=== PATIENT | male | born 1935 | race Two or more races ===

== ENCOUNTER → 2016-08-04 | Outpatient (CLI) | payer MEDICARE, OTHER ==
[~2016-08-04] MED LIST: ASPIRIN81 M3 PO; AVODART0.5 MG ORAL; CALCIUM500 M3 PO; CRESTOR10 M1 ORAL; CYCLOBENZAPRINE10 MG ORAL; DIFLUCAN100 MG ORAL; DOCUSATE SODIU100 MG ORAL; FERROUS SULFAT325 MG ORAL; FLUOCINONIDE60 ML TP; FLUOXETINE HCL10 MG ORAL; FOLIC ACID1 MG ORAL; IBUPROFEN200 M2 ORAL; INVOKANA300 MG PO; LOSARTAN POTASS50 MG ORAL; METFORMIN HCL500 M1 ORAL; MIRTAZAPINE7.5 MG ORAL; OMEPRAZOLE20 M2 ORAL; PAIN; PENTOXIFYLLINE400 MG ORAL; TRAMADOL HCL50 MG ORAL; VITAMIN D250000 UNI1 ORAL
--- NOTE | 2016-08-04 13:50 | GI Progress Note ---
Assessment/Plan Problems: (1) Small intestinal bacterial overgrowth ICD Codes: K63.89 - Other specified diseases of intestine SNOMED: 180574169 (2) Colostomy in place ICD Codes: Z93.3 - Colostomy status SNOMED: 182572647, 428958887 (3) Abdominal pain ICD Codes: R10.9 - Unspecified abdominal pain SNOMED: 72609288 (4) GERD (gastroesophageal reflux disease) ICD Codes: K21.9 - Gastro-esophageal reflux disease without esophagitis SNOMED: 494944940 (5) Diarrhea ICD Codes: R19.7 - Diarrhea, unspecified SNOMED: 17629627 Status: stable Status Narrative Seen with Dr. Salinas. Assessment/Plan [facility] for breath test r/o SIBO hold iron RTC after results repeat colon September 2018 Subjective Subjective diarrhea every other day abdominal bloating >> relieve with align x 1 month, but bloating returned after align stopped. GERD >> improved with use of prilosec, worsens when having eps of diarrhea. Objective T 97.6 P 92/44 P 68 99 RA Denies weight loss Michelle Harris N.P. Aug 04, 2016 13:50
[2016-08-04 16:36] VITALS: BP 92/44
== END | disposition home or self-care (01) ==
LOC: PAN 13:09
DX: A04.8 Other specified bacterial intestinal infections (principal); Z93.3 Colostomy status; R10.9 Unspecified abdominal pain; K21.9 Gastro-esophageal reflux disease without esophagitis; R19.7 Diarrhea, unspecified
CPT/HCPCS: 99211

== ENCOUNTER → 2016-09-06 | Outpatient (CLI) | payer MEDICARE, OTHER ==
[2016-09-06 11:15] VITALS: BP 120/68
--- NOTE | 2016-09-06 11:23 | General Progress Note ---
Assessment/Plan Problem List: (1) Small intestinal bacterial overgrowth ICD Codes: K63.89 - Other specified diseases of intestine SNOMED: 576458989 (2) Colostomy in place ICD Codes: Z93.3 - Colostomy status SNOMED: 338923096, 422416452 (3) Abdominal pain ICD Codes: R10.9 - Unspecified abdominal pain SNOMED: 76570683 (4) GERD (gastroesophageal reflux disease) ICD Codes: K21.9 - Gastro-esophageal reflux disease without esophagitis SNOMED: 023662757 (5) Diarrhea ICD Codes: R19.7 - Diarrhea, unspecified SNOMED: 65205142 (6) Constipation ICD Codes: K59.00 - Constipation, unspecified SNOMED: 33731043 Assessment/Plan positive breath test treat retc one month Subjective ROS Limited/Unobtainable: Yes Allergies: Coded Allergies: No Known Allergies (Unverified , 09/24/13) Subjective c/o excessive gas Objective Last 24 Hour Vital Signs Date Time Temp Pulse Resp B/P Pulse Ox O2 Delivery O2 Flow Rate FiO2 09/06/16 11:15 98.3 66 16 120/68 General Appearance: alert EENT: normal ENT inspection Neck: supple Cardiovascular: normal rate Respiratory/Chest: lungs clear Abdomen: normal bowel sounds, non tender, soft Extremities: non-tender JONES AWAN Sep 06, 2016 11:23
== END | disposition home or self-care (01) ==
LOC: PAN 10:35
DX: R10.9 Unspecified abdominal pain (principal); A04.8 Other specified bacterial intestinal infections; Z93.3 Colostomy status; K21.9 Gastro-esophageal reflux disease without esophagitis; R19.7 Diarrhea, unspecified; K59.00 Constipation, unspecified
CPT/HCPCS: 99211

== ENCOUNTER 2016-10-25 10:41 | Outpatient (CLI) | payer MEDICARE, OTHER ==
--- NOTE | 2016-10-25 11:14 | GI Progress Note ---
Assessment/Plan Problems: (1) Small intestinal bacterial overgrowth ICD Codes: K63.89 - Other specified diseases of intestine SNOMED: 451770555 (2) GERD (gastroesophageal reflux disease) ICD Codes: K21.9 - Gastro-esophageal reflux disease without esophagitis SNOMED: 439941139 (3) Abdominal pain ICD Codes: R10.9 - Unspecified abdominal pain SNOMED: 19142598 Status: stable Status Narrative Seen with Dr. Salinas. Assessment/Plan cont Xifaxan for SIBO. dc neomycin cont prilosec, zantac prn RTC x 2 weeks Subjective Subjective acid reflux, not taking any medication diarrhea has resolved abdominal bloating returned patient was taking Xifaxan for SIBO, but stopped treatment after 5 days due to increased lethargy neomycin was held by Dr. Lane Objective T 97.8 BP 107/98 P 63 General Appearance: no apparent distress, alert Cardiovascular: normal rate Respiratory/Chest: normal breath sounds, no respiratory distress Abdominal Exam: normal bowel sounds, non tender, soft Extremities: other - Michelle Harris NLuisPLuis October 25, 2016 11:14
[2016-10-25] MEDS ORDERED: CENTRUM COMPLE1 EAC1 PO (11:15)
[2016-10-25] MEDS ORDERED: ZANTAC150 MG ORAL (11:15)
== END 2016-10-25 11:15 | disposition home or self-care (01) ==
LOC: PAN 10:41
DX: K21.9 Gastro-esophageal reflux disease without esophagitis (principal); A04.8 Other specified bacterial intestinal infections; R10.9 Unspecified abdominal pain
CPT/HCPCS: 99211

== ENCOUNTER 2016-11-17 12:56 | Outpatient (CLI) | payer MEDICARE, OTHER ==
[~2016-11-17 12:56] MED LIST changes: +CENTRUM COMPLE1 EAC1 PO; +ZANTAC150 MG ORAL
--- NOTE | 2016-11-17 14:01 | GI Progress Note ---
Assessment/Plan Problems: (1) Small intestinal bacterial overgrowth ICD Codes: K63.89 - Other specified diseases of intestine SNOMED: 007157109 (2) Abdominal pain ICD Codes: R10.9 - Unspecified abdominal pain SNOMED: 94376452 (3) GERD (gastroesophageal reflux disease) ICD Codes: K21.9 - Gastro-esophageal reflux disease without esophagitis SNOMED: 218121579 (4) Diarrhea ICD Codes: R19.7 - Diarrhea, unspecified SNOMED: 83499703 (5) Constipation ICD Codes: K59.00 - Constipation, unspecified SNOMED: 86290002 Status: stable Status Narrative Seen with Dr. Salinas. Assessment/Plan s/p SIBO tx Xifaxin >> stopped neomycin due to weakness. zantac prn RTC x 3 months Subjective Subjective abdominal bloating symptoms improved acid reflux improved, no longer takes zantac prn abdominal pain improved Objective T 97.7 BP 112/42 P 67 98 RA General Appearance: no apparent distress, alert Cardiovascular: normal rate Respiratory/Chest: normal breath sounds Abdominal Exam: normal bowel sounds, non tender, soft Michelle Harris N.PLuis Nov 17, 2016 14:01
== END 2016-11-17 13:45 | disposition home or self-care (01) ==
LOC: PAN 12:56
DX: K21.9 Gastro-esophageal reflux disease without esophagitis (principal); K59.00 Constipation, unspecified; R10.9 Unspecified abdominal pain; A04.8 Other specified bacterial intestinal infections
CPT/HCPCS: 99211

== ENCOUNTER 2016-12-22 13:03 | Outpatient (CLI) | payer MEDICARE, OTHER ==
[2016-12-22 13:15] VITALS: BP 102/42
--- NOTE | 2016-12-22 14:11 | GI Progress Note ---
Assessment/Plan Problems: (1) Diarrhea ICD Codes: R19.7 - Diarrhea, unspecified SNOMED: 22794392 (2) Colostomy in place ICD Codes: Z93.3 - Colostomy status SNOMED: 543410608, 499997688 (3) Abdominal pain ICD Codes: R10.9 - Unspecified abdominal pain SNOMED: 91974368 (4) GERD (gastroesophageal reflux disease) ICD Codes: K21.9 - Gastro-esophageal reflux disease without esophagitis SNOMED: 030279007 (5) Small intestinal bacterial overgrowth ICD Codes: K63.89 - Other specified diseases of intestine SNOMED: 338625103 Status: stable Status Narrative Seen with Dr. Salinas. Assessment/Plan s/p SIBO tx Xifaxin >> stopped neomycin due to weakness. Imodium prn cont zantac prn RTC x 3 months Subjective Subjective GERD >> mild, reccurent Diarrhea >> since last monday - today Objective Last 24 Hour Vital Signs Date Time Temp Pulse Resp B/P Pulse Ox O2 Delivery O2 Flow Rate FiO2 12/22/16 13:15 98.7 73 16 102/42 General Appearance: no apparent distress, alert Cardiovascular: normal rate Respiratory/Chest: normal breath sounds, no respiratory distress Abdominal Exam: normal bowel sounds, non tender, soft, other - colostomy Michelle Harris N.PLuis Dec 22, 2016 14:11
== END 2016-12-22 13:45 | disposition home or self-care (01) ==
LOC: PAN 13:03
DX: R19.7 Diarrhea, unspecified (principal); Z93.3 Colostomy status; R10.9 Unspecified abdominal pain; K21.9 Gastro-esophageal reflux disease without esophagitis; A04.8 Other specified bacterial intestinal infections
CPT/HCPCS: 99211

== ENCOUNTER 2017-01-03 10:56 | Outpatient (CLI) | payer MEDICARE, OTHER ==
[2017-01-03 11:06] VITALS: BP 96/46
--- NOTE | 2017-01-03 11:28 | GI Progress Note ---
Assessment/Plan Problems: (1) Diarrhea ICD Codes: R19.7 - Diarrhea, unspecified SNOMED: 48024388 (2) GERD (gastroesophageal reflux disease) ICD Codes: K21.9 - Gastro-esophageal reflux disease without esophagitis SNOMED: 838639821 (3) Abdominal pain ICD Codes: R10.9 - Unspecified abdominal pain SNOMED: 67418514 Status: stable Status Narrative Seen with Dr. Salinas. Assessment/Plan rx cholestyramine RTC prn or 3 months Subjective Subjective diarrhea, lomotil helped for 1 day headache Objective Last 24 Hour Vital Signs Date Time Temp Pulse Resp B/P Pulse Ox O2 Delivery O2 Flow Rate FiO2 01/03/17 11:06 98.0 82 16 96/46 General Appearance: no apparent distress, alert Cardiovascular: normal rate Respiratory/Chest: normal breath sounds, no respiratory distress Abdominal Exam: normal bowel sounds, non tender, soft Extremities: other - wheelchair Michelle Harris N.P. Jan 03, 2017 11:28
== END 2017-01-03 11:28 | disposition home or self-care (01) ==
LOC: PAN 10:56
DX: K21.9 Gastro-esophageal reflux disease without esophagitis (principal); R19.7 Diarrhea, unspecified; R10.9 Unspecified abdominal pain
CPT/HCPCS: 99211

== ENCOUNTER 2017-01-05 13:26 | Outpatient (CLI) | payer MEDICARE, OTHER | END 2017-01-05 13:40 | disposition home or self-care (01) | LOC: PAN 13:26 | DX: R19.7 Diarrhea, unspecified (principal) | CPT/HCPCS: 87045; 87324 ==

== ENCOUNTER 2017-02-02 12:43 | Outpatient (CLI) | payer MEDICARE, OTHER ==
--- NOTE | 2017-02-02 14:32 | GI Progress Note ---
Assessment/Plan Problems: (1) Diarrhea ICD Codes: R19.7 - Diarrhea, unspecified SNOMED: 72225060 (2) GERD (gastroesophageal reflux disease) ICD Codes: K21.9 - Gastro-esophageal reflux disease without esophagitis SNOMED: 706852625 (3) Abdominal pain ICD Codes: R10.9 - Unspecified abdominal pain SNOMED: 07119138 Status: stable Status Narrative Seen with Dr. Salinas. Assessment/Plan Change cholestyramine to 2gm BID increase omeprazole to 40mg zantac BID consider colonoscopy if no improvement RTC x 3 month, prn The patient was seen and examined at bedside and all new and available data was reviewed in the patients chart. I agree with the above findings, impression and plan. (Patient seen earlier today. Signature stamp does not reflect patient encounter time.). -David Salinas MD Subjective Subjective GERD >> zantac, omeprazole 20mg constipation, then diarrhea >> cholestyramine causing skin reaction? Objective T 98.1 BP 103/40 P 75 93 RA General Appearance: no apparent distress, alert Cardiovascular: normal rate Respiratory/Chest: lungs clear, normal breath sounds Abdominal Exam: normal bowel sounds, non tender, soft Michelle Harris N.PLuis Feb 02, 2017 14:32 DAVID SALINAS Feb 03, 2017 10:38
== END 2017-02-02 13:45 | disposition home or self-care (01) ==
LOC: PAN 12:43
DX: K21.9 Gastro-esophageal reflux disease without esophagitis (principal); R19.7 Diarrhea, unspecified; R10.9 Unspecified abdominal pain
CPT/HCPCS: 99211

== ENCOUNTER 2017-02-13 13:06 | Outpatient (CLI) | payer MEDICARE, OTHER ==
--- NOTE | 2017-02-13 14:36 | GI Progress Note ---
Assessment/Plan Problems: (1) Abdominal pain ICD Codes: R10.9 - Unspecified abdominal pain SNOMED: 33854677 (2) GERD (gastroesophageal reflux disease) ICD Codes: K21.9 - Gastro-esophageal reflux disease without esophagitis SNOMED: 643071658 (3) Diarrhea ICD Codes: R19.7 - Diarrhea, unspecified SNOMED: 34920466 (4) Colostomy in place ICD Codes: Z93.3 - Colostomy status SNOMED: 094267474, 324646183 (5) Constipation ICD Codes: K59.00 - Constipation, unspecified SNOMED: 96171805 Status: stable Status Narrative Seen with Dr. Salinas. Assessment/Plan rx Mag Citrate use half pack of cholestyramine colonoscopy if no improvement RTC x 1 month/prn Subjective Subjective denies diarrhea having constipation now, no BM x 8 days Objective T 98.1 BP 93/42 P 75 denies weight loss no changed in medication Michelle Harris N.P. Feb 13, 2017 14:36
== END 2017-02-13 13:45 | disposition home or self-care (01) ==
LOC: PAN 13:06
DX: R10.9 Unspecified abdominal pain (principal); K21.9 Gastro-esophageal reflux disease without esophagitis; R19.7 Diarrhea, unspecified; Z93.3 Colostomy status; K59.00 Constipation, unspecified
CPT/HCPCS: 99211

== ENCOUNTER 2017-02-22 13:42 | Outpatient (CLI) | payer MEDICARE, OTHER ==
[2017-02-22] MEDS ORDERED: LEVOTHYROXINE50 MCG ORAL (14:08)
[2017-02-22 14:12] VITALS: BP 93/39
--- NOTE | 2017-02-22 14:21 | GI Progress Note ---
Assessment/Plan Problems: (1) Abdominal pain ICD Codes: R10.9 - Unspecified abdominal pain SNOMED: 95547495 (2) GERD (gastroesophageal reflux disease) ICD Codes: K21.9 - Gastro-esophageal reflux disease without esophagitis SNOMED: 147705813 (3) Constipation ICD Codes: K59.00 - Constipation, unspecified SNOMED: 00518468 Status: stable Status Narrative Discussed with Dr. Salinas. Assessment/Plan Trial rx of trulance RTC x 1 month/prn will consider colonoscopy if no improvement Subjective Subjective constipated was taking cholestyramine 1/2 package NO BM since last 02/16/17 new hypothyroidism Objective Last 24 Hour Vital Signs Date Time Temp Pulse Resp B/P (MAP) Pulse Ox O2 Delivery O2 Flow Rate FiO2 02/22/17 14:12 97.6 68 16 93/39 General Appearance: no apparent distress, alert Cardiovascular: normal rate Respiratory/Chest: normal breath sounds, no respiratory distress Abdominal Exam: normal bowel sounds, non tender, soft Michelle Harris N.P. Feb 22, 2017 14:21
== END 2017-02-22 14:30 | disposition home or self-care (01) ==
LOC: PAN 13:42
DX: K21.9 Gastro-esophageal reflux disease without esophagitis (principal); K59.00 Constipation, unspecified; R10.9 Unspecified abdominal pain; E03.9 Hypothyroidism, unspecified
CPT/HCPCS: 99211

== ENCOUNTER 2017-03-15 08:51 | Day surgery (SDC) | payer MEDICARE, OTHER ==
[~2017-03-15] VITALS: Ht 162.6 cm; Wt 59.9 kg
[2017-03-15] VITALS (7 sets, daily range): BP systolic 119–152; BP diastolic 55–69
[~2017-03-15 08:51] MED LIST changes: +LEVOTHYROXINE50 MCG ORAL
--- NOTE | 2017-03-15 09:28 | Pre-Procedure Note/Attestation ---
Pre-Procedure Note/Attestation Complete Prior to Procedure Planned Procedure: not applicable Procedure Narrative: COLONOSCOPY Indications for Procedure Pre-Operative Diagnosis: DIARRHEA Attestation I attest that I discussed the nature of the procedure; its benefits; risks and complications; and alternatives (and the risks and benefits of such alternatives ), prior to the procedure, with the patient (or the patient's legal mechanical service representative). I attest that, if there was a reasonable possibility of needing a blood transfusion, the patient (or the patient's legal mechanical service representative) was given the [facility] standardized written summary, pursuant to the Cesar Jason Blood Safety Act ([place] Health and Safety Code # 1645, as amended). I attest that I re-evaluated the patient just prior to the surgery and that there has been no change in the patient's H&P, except as documented below: JONES AWAN Mar 15, 2017 09:28
--- NOTE | 2017-03-15 09:28 | Short Stay Surgery H&P ---
History of Present Illness History of Present Illness Chief Complaint diarrhea HPI Leonard Cheung is a 81 year old male who was admitted on for Diarrhea Patient History Allergies: Coded Allergies: No Known Allergies (Unverified , 09/24/13) PAST MEDICAL HISTORY: (1) Abdominal pain (2) GERD (gastroesophageal reflux disease) (3) Constipation (4) Colostomy in place (5) Diarrhea (6) Small intestinal bacterial overgrowth Past Surgeries: Social History: Medication History Scheduled Aspirin (Aspirin), 81 MG PO DAILY, (Reported) Canagliflozin (Invokana), 300 MG PO DA, (Reported) Cyclobenzaprine Hcl* (Flexeril*), 10 MG ORAL DA, (Reported) Dutasteride (Avodart), 0.5 MG ORAL DAILY, (Reported) Ergocalciferol (Vitamin D2)* (Vitamin D*), 50,000 UNIT ORAL ONCE A WEEK, ( Reported) Ferrous Sulfate* (Ferrous Sulfate*), 325 MG ORAL TID, (Reported) Fluocinonide (Fluocinonide), 60 ML TP BID, (Reported) Fluoxetine Hcl* (Fluoxetine Hcl*), 10 MG ORAL DAILY, (Reported) Folic Acid* (Folic Acid*), 1 MG ORAL DAILY, (Reported) Levothyroxine Sodium* (Levothyroxine Sodium*), 50 MCG ORAL DAILY, (Reported) Losartan Potassium* (Losartan Potassium*), 100 MG ORAL DAILY, (Reported) Metformin Hcl* (Metformin Hcl*), 1,000 MG ORAL BID, (Reported) Mirtazapine* (Mirtazapine*), 7.5 MG ORAL BEDTIME, (Reported) Omeprazole (Omeprazole), 40 MG ORAL DAILY, (Reported) Pentoxifylline* (Trental*), 400 MG ORAL BID, (Reported) Ranitidine Hcl* (Zantac*), 150 MG ORAL PRN, (Reported) Rosuvastatin Calcium (Crestor), 10 MG ORAL DAILY, (Reported) [pain lotion], BID, (Reported) Scheduled PRN Tramadol Hcl* (Ultram*), 50 MG ORAL QQ8 PRN for For Pain, (Reported) Miscellaneous Medications Multivitamin/Iron/Folic Acid (Centrum Complete Multivit Tab), EACH PO, (Reported ) Review of Systems Cardiovascular: Reports: no symptoms Respiratory: Reports: no symptoms Skeletal: Reports: no symptoms Gastrointestinal: Reports: no symptoms, gastro esophageal reflux disease, other Genitourinary: Reports: no symptoms Neurologic: Reports: no symptoms Endocrine: Reports: no symptoms Hematologic: Reports: no symptoms Physical Exam Skin: normal HENT: normal Heart: normal Lungs: normal Abdomen: normal Extremities: normal Plan Plan of Care EGD Final Diagnosis: Attestation Are the patient's medical conditions optimized for surgery? Attestation Response: yes JONES AWAN Mar 15, 2017 09:28
[2017-03-15] MEDS ORDERED: DOCUSATE SODIU100 MG ORAL (09:53)
[2017-03-15 09:58] LABS: BASOPHILS % (AUTO) 1.8 % (0.0-2.0); EOSINOPHILS % (AUTO) 16.2 % (0.0-3.0); LYMPHOCYTES % (AUTO) 37.2 % (20.0-45.0); MEAN CORPUSCULAR HEMOGLOBIN 30.8 PG (27.0-31.0); MEAN CORPUSCULAR HGB CONC 31.6 G/DL (32.0-36.0); MEAN CORPUSCULAR VOLUME 97 FL (80-99); MEAN PLATELET VOLUME 6.5 FL (6.5-10.1); MONOCYTES % (AUTO) 7.4 % (1.0-10.0); NEUTROPHILS % (AUTO) 37.3 % (45.0-75.0); PLATELET COUNT 245 K/UL (150-450); RED BLOOD COUNT 4.31 M/UL (4.70-6.10); WHITE BLOOD COUNT 6.7 K/UL (4.8-10.8)
[2017-03-15] MEDS ORDERED: Propofol 200mg/20ml IV ONE (10:10)
[2017-03-15 10:12] LABS: AMYLASE 93 U/L (10-110); LIPASE 50 U/L (< 60)
[2017-03-15 10:13] LABS: ALANINE AMINOTRANSFERASE 22 U/L (3-41); ALBUMIN/GLOBULIN RATIO 1.2 (1.0-2.7); ANION GAP 12 (5-15); ASPARTATE AMINO TRANSFERASE 26 U/L (5-40); CARBON DIOXIDE 30 mEQ/L (20-30); CHLORIDE 99 mEQ/L (98-107); CREATININE 0.9 mg/dL (0.7-1.2); HEMOLYSIS 7; POTASSIUM 4.6 mEQ/L (3.4-4.9); SODIUM 141 mEQ/L (135-145); TOTAL PROTEIN 7.7 g/dL (6.6-8.7)
--- NOTE | 2017-03-15 10:29 | Anethesia Preoperative Eval ---
Anesthesia Pre-op PMH/ROS General Date of Evaluation: Mar 15, 2017 Time of Evaluation: 10:10 Anesthesiologist: Chelsie ASA Score: ASA 3 Mallampati Score Class I : Soft palate, uvula, fauces, pillars visible Class II: Soft palate, uvula, fauces visible Class III: Soft palate, base of uvula visible Class IV: Only hard plate visible Mallampati Classification: Class II Surgeon: Brad Diagnosis: Diarrhea, Constipation Surgical Procedure: Colonoscopy Anesthesia History: none Family History: no anesthesia problems Allergies: Coded Allergies: No Known Allergies (Unverified , 09/24/13) Medications: see eMAR Past Medical History Cardiovascular: Denies: HTN, CAD, GA, valve dz, arrhythmia, other Pulmonary: Denies: asthma, COPD, JUSTIN, other Gastrointestinal/Genitourinary: Reports: GERD, other - diarrhea, constipation, abd pain, colostomy, Neurologic/Psychiatric: Denies: dementia, CVA, depression/anxiety, TIA, other Endocrine: Denies: DM, hypothyroidism, steroids, other HEENT: Denies: cataract (L), cataract (R), glaucoma, [place] (L), [place] (R), other Hematology/Immune: Denies: anemia, DVT, bleeding disorder, other Musculoskeletal/Integumentary: Denies: OA, RA, DJD, DDD, edema, other Anesthesia Pre-op Phys. Exam Physician Exam Last Vital Signs Date Time Temp Pulse Resp B/P (MAP) Pulse Ox O2 Delivery O2 Flow Rate FiO2 03/15/17 09:25 98.0 58 18 147/55 99 Room Air Constitutional: NAD Neurologic: CN 2-12 intact Cardiovascular: RRR Respiratory: CTA Gastrointestinal: S/NT/ND Airway Exam Mallampati Score: Class II MO: full ROM: full Teeth: missing Dentures: upper, lower Anesthesia Pre-op A/P Labs Hematology Test 03/15/17 09:40 White Blood Count 6.7 K/UL (4.8-10.8) Red Blood Count 4.31 M/UL (4.70-6.10) L Hemoglobin 13.3 G/DL (14.2-18.0) L Hematocrit 42.0 % (42.0-52.0) Mean Corpuscular Volume 97 FL (80-99) Mean Corpuscular Hemoglobin 30.8 PG (27.0-31.0) Mean Corpuscular Hemoglobin Concent 31.6 G/DL (32.0-36.0) L Red Cell Distribution Width 12.0 % (11.6-14.8) Platelet Count 245 K/UL (150-450) Mean Platelet Volume 6.5 FL (6.5-10.1) Neutrophils (%) (Auto) 37.3 % (45.0-75.0) L Lymphocytes (%) (Auto) 37.2 % (20.0-45.0) Monocytes (%) (Auto) 7.4 % (1.0-10.0) Eosinophils (%) (Auto) 16.2 % (0.0-3.0) H Basophils (%) (Auto) 1.8 % (0.0-2.0) Chemistry Test 03/15/17 09:40 Sodium Level Pending Potassium Level Pending Chloride Level Pending Carbon Dioxide Level Pending Blood Urea Nitrogen Pending Creatinine Pending Estimat Glomerular Filtration Rate Pending Glucose Level Pending Calcium Level Pending Total Bilirubin Pending Aspartate Amino Transf (AST/SGOT) Pending Alanine Aminotransferase (ALT/SGPT) Pending Alkaline Phosphatase Pending Total Protein Pending Albumin Pending Globulin Pending Amylase Level Pending Lipase Pending Carcinoembryonic Antigen Pending Studies Pre-op Studies: EKG - NSB with PACs bigminy Risk Assessment & Plan Plan: mac Status Change Before Surgery: No Pre-Antibiotics Given Within 1 Hr of Incision: Inocencia Pollard CRNA Mar 15, 2017 10:29
--- NOTE | 2017-03-15 10:30 | Immediate Post-Op Evaluation ---
Immediate Post-Op Evalulation Immediate Post-Op Evalulation Date of Evaluation: Mar 15, 2017 Time of Evaluation: 10:53 IV Fluids: 550 ml of NSS Estimated Blood Loss: 0 Urinary Output: 0 Blood Pressure Systolic: 119 Blood Pressure Diastolic: 56 Pulse Rate: 62 Respiratory Rate: 12 O2 Sat by Pulse Oximetry: 100 Temperature (Fahrenheit): 97.7 Pain Score (1-10): 0 Nausea: No Vomiting: No Patient Status: awake, reacts, patent Hydration Status: adequate Given Within 1 Hr of Incision: Inocencia Pollard CRNA Mar 15, 2017 10:30
--- NOTE | 2017-03-15 10:30 | 48 Hour Post Anesthesia Eval ---
Post Anesthesia Evaluation Date of Evaluation: Mar 15, 2017 Time of Evaluation: 11:10 Blood Pressure Systolic: 120 0: 58 Pulse Rate: 60 Respiratory Rate: 14 Temperature (Fahrenheit): 97.5 O2 Sat by Pulse Oximetry: 100 Airway: patent Nausea: No Vomiting: No Pain Intensity: 0 Hydration Status: adequate Mental Status/LOC: patient returned to baseline Follow-up care needed: patient intructions given Inocencia Holguin CRNA Mar 15, 2017 10:30
--- NOTE | 2017-03-15 10:42 | Endoscopy Procedure Note ---
Endoscopy Procedure Note Indication for Procedure: CHANGE IN BOWEL HABIT Procedures Performed: colonoscopy Operative Findings/Diagnosis: 2 POLYPS, DIVERTICULOSIS Specimen: yes Pt Tolerated Procedure Well: Yes Estimated Blood Loss: none Anesthesiologist: DESHAWN Anesthesia: MAC Implant(s) used?: No 50 yrs or older w/o bx or poly: No 10yrs. F/U not recommended: Yes If not recommended, why?: Above average risk 10 yrs. F/U needed: Yes 18 years or older w/prev. colo: Yes <3yrs. since last colonoscopy: No JONES AWAN Mar 15, 2017 10:42
--- NOTE | 2017-03-15 21:30 | Procedure Note ---
DATE OF PROCEDURE: 03/15/2017 SURGEON: David Salinas M.D. PROCEDURE: Colonoscopy with biopsy. ANESTHESIA: Per Chelsie NOEL. INSTRUMENT: Olympus adult flexible colonoscope. INDICATIONS: 1. Change in bowel habits. 2. History of colonic polyps. 3. Diverticulosis. Reason for Procedure: The procedure, risks, benefits, and possible consequences, including hemorrhage, aspiration, perforation and infection, and alternative treatments, were explained to the patient/legal guardian by Dr. David Salinas and the patient/legal guardian understood and accepted these risks. Description Of Procedure: After informed consent was obtained and the patient was adequately sedated, Olympus adult scope was advanced through the colostomy bag into the colon and subsequently into the cecum. Quality of prep was fair. There were a lot of seeds in the colon, which clogged up our scope. It was a little bit challenging given prior history of abdominal surgeries and the position that we had to do, the patient in the supine position made this procedure very challenging. Also, the patient had significant diverticulosis throughout the colon especially in the right colon. There were two diminutive polyps in the ascending colon, which were removed with the cold biopsy forceps technique. There was no further polyp seen in this exam. Random biopsy from the left colon was obtained for evaluation of microscopic colitis. The patient tolerated the procedure well without any complication. SUMMARY OF FINDINGS: 1. Diverticulosis. 2. Two colonic polyps removed. RECOMMENDATIONS: Followup biopsy results and treat accordingly. David Salinas M.D. DR: SWETA JOB#: [id number] CC:
--- NOTE | 2017-03-25 02:13 | Cardiology Report ---
APPROVED REPORT EKG Measurement Heart [id number] MO [id number] Sinus bradycardia with premature atrial complexes in a pattern of bigeminy Otherwise normal ECG
== END 2017-03-15 12:10 | disposition home or self-care (01) ==
LOC: GAS 08:51
DX: K57.90 Diverticulosis of intestine, part unspecified, without perforation or abscess without bleeding (principal); K63.5 Polyp of colon; K21.9 Gastro-esophageal reflux disease without esophagitis; K59.00 Constipation, unspecified; R19.7 Diarrhea, unspecified; A04.9 Bacterial intestinal infection, unspecified; Z79.82 Long term (current) use of aspirin; Z93.3 Colostomy status; R19.4 Change in bowel habit
CPT/HCPCS: 36415; 45380; 80053; 82150; 82378; 82962; 83690; 85025; 93005; J2704; 94003; 94150

== ENCOUNTER 2017-03-29 13:01 | Outpatient (CLI) | payer MEDICARE, OTHER ==
[2017-03-29 13:11] VITALS: BP 105/45
--- NOTE | 2017-03-29 14:02 | GI Progress Note ---
Assessment/Plan Problems: (1) Colostomy in place ICD Codes: Z93.3 - Colostomy status SNOMED: 127277721, 865060713 (2) Small intestinal bacterial overgrowth ICD Codes: K63.89 - Other specified diseases of intestine SNOMED: 403487910 (3) Abdominal pain ICD Codes: R10.9 - Unspecified abdominal pain SNOMED: 08725368 (4) GERD (gastroesophageal reflux disease) ICD Codes: K21.9 - Gastro-esophageal reflux disease without esophagitis SNOMED: 920451436 (5) Diarrhea ICD Codes: R19.7 - Diarrhea, unspecified SNOMED: 29524020 (6) Constipation ICD Codes: K59.00 - Constipation, unspecified SNOMED: 50052721 Status: stable Status Narrative Seen with Dr. Salinas. Assessment/Plan s/p colonoscopy SUMMARY OF FINDINGS reviewed with patient: 1. Diverticulosis. 2. Two colonic polyps removed. bx >> consistent with lymphocytic colitis RECOMMENDATIONS: Followup biopsy results and treat accordingly. cont current plan of care linzess cholestyramine RTC x 1 month/prn Subjective Subjective BM is getting regular Objective Last 24 Hour Vital Signs Date Time Temp Pulse Resp B/P (MAP) Pulse Ox O2 Delivery O2 Flow Rate FiO2 03/29/17 13:11 98.3 86 16 105/45 General Appearance: no apparent distress, alert Cardiovascular: normal rate Respiratory/Chest: normal breath sounds, no respiratory distress Abdominal Exam: normal bowel sounds, non tender, soft, other - ostomy Michelle Harris N.P. Mar 29, 2017 14:02
== END 2017-03-29 14:00 | disposition home or self-care (01) ==
LOC: PAN 13:01
DX: R10.9 Unspecified abdominal pain (principal); Z93.3 Colostomy status; K63.89 Other specified diseases of intestine; K21.9 Gastro-esophageal reflux disease without esophagitis; R19.7 Diarrhea, unspecified; K59.00 Constipation, unspecified; K57.90 Diverticulosis of intestine, part unspecified, without perforation or abscess without bleeding; Z86.010 Personal history of colon polyps
CPT/HCPCS: 99211

== ENCOUNTER 2017-05-25 13:07 | Outpatient (CLI) | payer MEDICARE, OTHER ==
[2017-05-25 13:26] VITALS: BP 110/49
[2017-05-25] MEDS ORDERED: LINZESS72 MCG PO (13:31)
--- NOTE | 2017-05-25 14:21 | GI Progress Note ---
Assessment/Plan Problems: (1) Diarrhea ICD Codes: R19.7 - Diarrhea, unspecified SNOMED: 97764070 (2) Constipation ICD Codes: K59.00 - Constipation, unspecified SNOMED: 04612621 (3) GERD (gastroesophageal reflux disease) ICD Codes: K21.9 - Gastro-esophageal reflux disease without esophagitis SNOMED: 935497074 (4) Abdominal pain ICD Codes: R10.9 - Unspecified abdominal pain SNOMED: 37153734 (5) Colostomy in place ICD Codes: Z93.3 - Colostomy status SNOMED: 340882106, 474435554 Status: stable Status Narrative Seen with Dr. Salinas. Assessment/Plan rectal exam performed >> solid stool give tap water enema Linzess 72 mcg RTC PRN Subjective Subjective GERD Diarrhea, most of the time still regular diarrhea vs constipation Objective Last 24 Hour Vital Signs Date Time Temp Pulse Resp B/P (MAP) Pulse Ox O2 Delivery O2 Flow Rate FiO2 05/25/17 13:26 98.2 60 16 110/49 98 General Appearance: no apparent distress, alert Cardiovascular: normal rate Respiratory/Chest: normal breath sounds, no respiratory distress Abdominal Exam: soft Michelle Harris NCristhian May 25, 2017 14:21
== END 2017-05-25 14:00 | disposition home or self-care (01) ==
LOC: PAN 13:07
DX: R19.7 Diarrhea, unspecified (principal); K59.00 Constipation, unspecified; K21.9 Gastro-esophageal reflux disease without esophagitis; R10.9 Unspecified abdominal pain; Z93.3 Colostomy status
CPT/HCPCS: 99213

== ENCOUNTER 2017-06-26 13:04 | Outpatient (CLI) | payer MEDICARE, OTHER ==
[~2017-06-26 13:04] MED LIST changes: +LINZESS72 MCG PO
--- NOTE | 2017-06-26 15:15 | GI Progress Note ---
Assessment/Plan Problems: (1) Colostomy in place ICD Codes: Z93.3 - Colostomy status SNOMED: 448017710, 938291123 (2) Abdominal pain ICD Codes: R10.9 - Unspecified abdominal pain SNOMED: 53267422 (3) Constipation ICD Codes: K59.00 - Constipation, unspecified SNOMED: 49902247 Status: stable Status Narrative Seen with Dr. Salinas. Assessment/Plan rectal exam performed last visit >> solid stool stop Linzess 72 mcg >> will give Amitiza 24mcg trial RTC PRN Subjective Subjective constipated >> had stopped linzess 72mcg few weeks prior, has diarrhea when the medication is taken Objective T 98.1 P 74 97 RA Denies any unintentional weight loss or changes in dietary habits. General Appearance: WD/WN, no apparent distress, alert Cardiovascular: normal rate Respiratory/Chest: normal breath sounds, no respiratory distress Abdominal Exam: normal bowel sounds, non tender, soft, other - colostomy Extremities: non-tender Michelle Harris N.P. Jun 26, 2017 15:15
== END 2017-06-26 13:38 | disposition home or self-care (01) ==
LOC: PAN 13:04
DX: R10.9 Unspecified abdominal pain (principal); K59.00 Constipation, unspecified; Z93.3 Colostomy status
CPT/HCPCS: 99212

== ENCOUNTER 2017-07-13 13:21 | Outpatient (CLI) | payer MEDICARE, OTHER ==
[2017-07-13 14:00] VITALS: BP 113/49
--- NOTE | 2017-07-13 15:46 | GI Progress Note ---
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 Salinas. Assessment/Plan dc linsees bowel regime >> senokot + colace + miralax RTC PRN Subjective Subjective GERD with min relief from zantac Constipation vs Diarrhea, constipated today - trial amitiza Objective T 98.1 BP 113/49 HR 82 98 RA General Appearance: WD/WN, no apparent distress, alert Cardiovascular: normal rate Respiratory/Chest: normal breath sounds, no respiratory distress Abdominal Exam: normal bowel sounds, non tender, soft, other - colostomy Extremities: non-tender Michelle Harris N.PLuis Jul 13, 2017 15:46
== END 2017-07-13 13:55 | disposition home or self-care (01) ==
LOC: PAN 13:21
DX: R10.9 Unspecified abdominal pain (principal); K59.00 Constipation, unspecified; K21.9 Gastro-esophageal reflux disease without esophagitis; Z93.3 Colostomy status
CPT/HCPCS: 99213

== ENCOUNTER 2018-03-27 11:02 | Outpatient (CLI) | payer MEDICARE, OTHER ==
--- NOTE | 2018-03-27 11:35 | GI Progress Note ---
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 Salinas. Assessment/Plan Stop all laxatives x3days add fiber if diarrhea persist for 4-5 days. RTC if diarrhea persists after this or PRN. The patient was seen and examined at bedside and all new and available data was reviewed in the patients chart. I agree with the above findings, impression and plan. (Patient seen earlier today. Signature stamp does not reflect patient encounter time.). - David Salinas MD Subjective Subjective persistent diarrhea, was on senna and colace had recent cortisone injection in the knee Objective General Appearance: WD/WN, no apparent distress, alert Cardiovascular: normal rate Respiratory/Chest: normal breath sounds, no respiratory distress Abdominal Exam: normal bowel sounds, non tender, soft Extremities: non-tender Andrae Harris NP Mar 27, 2018 11:35
== END 2018-03-27 11:32 | disposition home or self-care (01) ==
LOC: PAN 11:02
DX: R19.7 Diarrhea, unspecified (principal); K21.9 Gastro-esophageal reflux disease without esophagitis; Z93.3 Colostomy status

== ENCOUNTER 2018-06-06 14:35 | Outpatient (CLI) | payer MEDICARE, OTHER ==
--- NOTE | 2018-06-06 14:50 | GI Progress Note ---
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 Salinas Assessment/Plan abdominal pelvic CT reviewed noted with stool in the rectum from constipation mineral oil enema x10 days miralax 17g Golytely 2L RTC prn The patient was seen and examined at bedside and all new and available data was reviewed in the patients chart. I agree with the above findings, impression and plan. (Patient seen earlier today. Signature stamp does not reflect patient encounter time.). - David Salinas MD Subjective Subjective Complains of abdominal pain Constipation versus diarrhea, currently has stopped Senokot and Dulcolax Objective Temperature 98 degrees Blood pressure 105/62 Pulse 62 95% room air General Appearance: WD/WN, no apparent distress, alert Cardiovascular: normal rate Respiratory/Chest: normal breath sounds, no respiratory distress Abdominal Exam: normal bowel sounds, non tender, soft Extremities: normal range of motion, non-tender Andrae Harris NP Jun 06, 2018 14:50
== END 2018-06-06 15:05 | disposition home or self-care (01) ==
LOC: PAN 14:35
DX: R10.9 Unspecified abdominal pain (principal); K59.00 Constipation, unspecified; K63.89 Other specified diseases of intestine; K21.9 Gastro-esophageal reflux disease without esophagitis; Z93.3 Colostomy status
CPT/HCPCS: 99212

== ENCOUNTER 2018-07-16 13:27 | Outpatient (CLI) | payer MEDICARE, OTHER ==
[2018-07-16 14:00] VITALS: BP 109/43
--- NOTE | 2018-07-16 15:17 | GI Progress Note ---
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 Salinas Assessment/Plan add Fiber to diet start bowel regime when diarrhea resolves RTC prn The patient was seen and examined at bedside and all new and available data was reviewed in the patients chart. I agree with the above findings, impression and plan. (Patient seen earlier today. Signature stamp does not reflect patient encounter time.). - David Salinas MD Subjective Subjective GERD, currently taking omeprazole Has complaint of severe diarrhea, stopped the MiraLAX Objective Temperature 98.2 Blood pressure 109/43 Pulse 63 100% room air General Appearance: WD/WN, no apparent distress, alert Cardiovascular: normal rate Respiratory/Chest: normal breath sounds, no respiratory distress Abdominal Exam: normal bowel sounds, non tender, soft Extremities: non-tender Andrae Harris NP Jul 16, 2018 15:17
== END 2018-07-16 13:57 | disposition home or self-care (01) ==
LOC: PAN 13:27
DX: K63.89 Other specified diseases of intestine (principal); K21.9 Gastro-esophageal reflux disease without esophagitis; K59.00 Constipation, unspecified; R19.7 Diarrhea, unspecified; R10.9 Unspecified abdominal pain; Z93.3 Colostomy status
CPT/HCPCS: 99212

== ENCOUNTER 2018-09-11 10:16 | Outpatient (CLI) | payer MEDICARE, OTHER ==
[2018-09-11 10:40] VITALS: BP 107/44
--- NOTE | 2018-09-11 14:35 | General Progress Note ---
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
== END 2018-09-11 12:16 | disposition home or self-care (01) ==
LOC: PAN 10:16
DX: K59.00 Constipation, unspecified (principal); R19.7 Diarrhea, unspecified; K21.9 Gastro-esophageal reflux disease without esophagitis; R10.9 Unspecified abdominal pain; Z93.3 Colostomy status; K63.89 Other specified diseases of intestine

== ENCOUNTER 2019-03-07 13:26 | Outpatient (CLI) | payer MEDICARE, OTHER ==
[2019-03-07 13:52] VITALS: BP 96/45
--- NOTE | 2019-03-07 14:32 | General Progress Note ---
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.3 - Colostomy status SNOMED: 965808612, 952980634 (3) Abdominal pain ICD Codes: R10.9 - Unspecified abdominal pain SNOMED: 02804185 (4) GERD (gastroesophageal reflux disease) ICD Codes: K21.9 - Gastro-esophageal reflux disease without esophagitis SNOMED: 863164611 (5) Diarrhea ICD Codes: R19.7 - Diarrhea, unspecified SNOMED: 97972262 (6) Constipation ICD Codes: K59.00 - Constipation, unspecified SNOMED: 98748089 (7) Gallstones ICD Codes: K80.20 - Calculus of gallbladder without cholecystitis without obstruction SNOMED: 881887281 Assessment/Plan: refill senna educated the patient about gallstones and no need for surg at this time Subjective ROS Limited/Unobtainable: Yes Allergies: Coded Allergies: No Known Allergies (Unverified , 09/24/13) Objective General Appearance: alert EENT: normal ENT inspection Neck: normal alignment Cardiovascular: normal rate Respiratory/Chest: lungs clear Abdomen: normal bowel sounds, non tender, soft Extremities: non-tender David Salinas MD Mar 07, 2019 14:32
[2019-03-07] MEDS ORDERED: LYRICA75 M1 ORAL (16:40)
[2019-03-07] MEDS ORDERED: DOCUSATE SODIU100 MG ORAL (16:40)
[2019-03-07] MEDS ORDERED: SYSTANE BALANCE10 M1 OP (16:40)
[2019-03-07] MEDS ORDERED: NORVASC10 MG ORAL (16:40)
[2019-03-07] MEDS ORDERED: SENNA8.6 M2 PO (16:40)
[2019-03-07] MEDS ORDERED: VITAMIN C1000 M2 PO (16:40)
[2019-03-07] MEDS ORDERED: VOLTAREN100 G1 TP (16:40)
[2019-03-07] MEDS ORDERED: FERROUS SULFAT325 MG ORAL (16:40)
[2019-03-07] MEDS ORDERED: MECLIZINE HCL12.5 MG ORAL (16:40)
[2019-03-07] MEDS ORDERED: VITAMIN B-121000 MCG PO (16:40)
[2019-03-07] MEDS ORDERED: ZANTAC150 MG ORAL (16:40)
== END 2019-03-07 14:52 | disposition home or self-care (01) ==
LOC: PAN 13:26
DX: R10.9 Unspecified abdominal pain (principal); K21.9 Gastro-esophageal reflux disease without esophagitis; R19.7 Diarrhea, unspecified; K59.00 Constipation, unspecified; K80.20 Calculus of gallbladder without cholecystitis without obstruction; K63.89 Other specified diseases of intestine
CPT/HCPCS: 99212

== ENCOUNTER 2019-09-04 13:28 | Outpatient (CLI) | payer MEDICARE, OTHER ==
[~2019-09-04 13:28] MED LIST changes: +LYRICA75 M1 ORAL; +MECLIZINE HCL12.5 MG ORAL; +NORVASC10 MG ORAL; +SENNA8.6 M2 PO; +SYSTANE BALANCE10 M1 OP; +VITAMIN B-121000 MCG PO; +VITAMIN C1000 M2 PO; +VOLTAREN100 G1 TP
--- NOTE | 2019-09-04 13:50 | General Progress Note ---
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.3 - Colostomy status SNOMED: 797021893, 742941668 (3) Abdominal pain ICD Codes: R10.9 - Unspecified abdominal pain SNOMED: 36417734 (4) GERD (gastroesophageal reflux disease) ICD Codes: K21.9 - Gastro-esophageal reflux disease without esophagitis SNOMED: 147067332 (5) Diarrhea ICD Codes: R19.7 - Diarrhea, unspecified SNOMED: 21331815 (6) Constipation ICD Codes: K59.00 - Constipation, unspecified SNOMED: 11063872 (7) Gallstones ICD Codes: K80.20 - Calculus of gallbladder without cholecystitis without obstruction SNOMED: 411918998 Assessment/Plan: change ppi to Dexillant add motegritiy VSL #3 Subjective ROS Limited/Unobtainable: Yes Allergies: Coded Allergies: No Known Allergies (Unverified , 09/24/13) Objective General Appearance: alert EENT: normal ENT inspection Neck: supple Cardiovascular: normal rate Respiratory/Chest: decreased breath sounds Abdomen: normal bowel sounds, non tender, soft Extremities: non-tender David Salinas MD Sep 04, 2019 13:50
[2019-09-04 14:06] VITALS: BP 95/41
== END 2019-09-04 15:52 | disposition home or self-care (01) ==
LOC: PAN 13:28
DX: R10.9 Unspecified abdominal pain (principal); K63.89 Other specified diseases of intestine; Z93.3 Colostomy status; K21.9 Gastro-esophageal reflux disease without esophagitis; R19.7 Diarrhea, unspecified; K59.00 Constipation, unspecified; K80.20 Calculus of gallbladder without cholecystitis without obstruction
CPT/HCPCS: 99212